=== PATIENT | female | born 1960 | race Caucasian/White ===

== ENCOUNTER 2018-04-21 09:53 | Emergency (ER) | payer MEDICAID ==
[~2018-04-21] VITALS: Ht 167.6 cm; Wt 64.5 kg
[~2018-04-21 09:53] MED LIST: CARAFATE PO; CEFUROXIME500 MG PO; HYDROCODONE/ACE1 TAB PO; OMEPRAZOLE20 MG PO; PROAIR HFA IN; SPIRIVA HANDIH18 MCG
[2018-04-21] MEDS ORDERED: PROTONIX40 M2 PO (10:49)
[2018-04-21] MEDS ORDERED: NICODERM C21 MG/242 TD (10:50)
[2018-04-21 12:34] VITALS: BP 131/79
[2018-04-25] MEDS ORDERED: CEFUROXIME500 MG PO (07:55)
[2018-04-25] MEDS ORDERED: SPIRIVA RE1.25 MCG/A (07:57)
[2018-04-25] MEDS ORDERED: HYDROCODONE/ACE1 TAB PO (08:28)
== END 2018-04-21 12:34 | disposition home or self-care (01) ==
LOC: ED 09:53
DX: G89.29 Other chronic pain (principal); M54.9 Dorsalgia, unspecified; J45.909 Unspecified asthma, uncomplicated; Z98.84 Bariatric surgery status; F17.210 Nicotine dependence, cigarettes, uncomplicated; Z79.891 Long term (current) use of opiate analgesic